=== PATIENT | female | born 1945 | race Caucasian/White ===

== ENCOUNTER 2017-11-05 15:58 | Outpatient (CLI) | payer MEDICARE ==
--- NOTE | 2017-11-05 17:38 | RAD ---
RIGHT HIP TWO VIEWS: INDICATIONS: Hip pain. 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 No acute fracture or subluxation is evident. IMPRESSION: No acute osseous abnormality. POS: [facility]
== END 2017-11-05 15:59 | disposition home or self-care (01) ==
LOC: NAV RAD 15:58
PROVIDERS: ATTEND Family Medicine
DX: M25.551 Pain in right hip (principal)

== ENCOUNTER 2022-05-23 09:44 | Outpatient (CLI) | payer MEDICARE | END 2022-05-23 09:45 | disposition home or self-care (01) | LOC: NAV RAD 09:44 | PROVIDERS: ATTEND Family Medicine | DX: M47.26 Other spondylosis with radiculopathy, lumbar region (principal); R29.890 Loss of height | CPT/HCPCS: 72110 ==